=== PATIENT | male | born 1990 | race American Indian/Alaskan Native ===

== ENCOUNTER 2017-01-02 10:56 | Emergency (ER) | payer MEDICAID ==
[2017-01-02 11:01] VITALS: BP 123/80; PULSE 80; RESP 18; TEMP 98.2; O2SAT 98
[2017-01-02 11:02] VITALS: BMI 46.3
--- NOTE | 2017-01-02 12:04 | ED PDOC ---
HPI: General Adult Time Seen by Provider: 01/02/17 11:18 Chief Complaint (Nursing): Medical Clearance Chief Complaint (Provider): detox History Per: Patient Additional Complaint(s): pt requesting detox from coccaine and heroin. states last use coccaine this morning, heroin yesterday afternoon, snorts both. no skin popping. denies c/o at this time. Past Medical History Reviewed: Historical Data, Nursing Documentation, Vital Signs Vital Signs: Last Vital Signs Temp 98.2 F 01/02/17 11:01 Pulse 80 01/02/17 11:01 Resp 18 01/02/17 11:01 BP 123/80 01/02/17 11:01 Pulse Ox 98 01/02/17 11:01 - Medical History PMH: Depression, HTN - Family History Family History: States: No Known Family Hx - Social History Current smoker - smoking cessation education provided: No Alcohol: None Drugs: Cocaine, Opiates - Allergies Allergies/Adverse Reactions: Allergies Allergy/AdvReac Type Severity Reaction Status Date / Time No Known Allergies Allergy Verified 01/02/17 11:32 Review of Systems ROS Statement: Except As Marked, All Systems Reviewed And Found Negative Physical Exam - Reviewed Nursing Documentation Reviewed: Yes Vital Signs Reviewed: Yes - Physical Exam Appears: Positive for: Well, Non-toxic, No Acute Distress Head Exam: Positive for: ATRAUMATIC, NORMAL INSPECTION, NORMOCEPHALIC Skin: Positive for: Normal Color, Warm, DRY Eye Exam: Positive for: EOMI, Normal appearance, PERRL Neck: Positive for: Normal, Painless ROM Cardiovascular/Chest: Positive for: Regular Rate, Rhythm Respiratory: Positive for: CNT, Normal Breath Sounds Gastrointestinal/Abdominal: Positive for: Normal Exam (obese), Bowel Sounds, Soft. Negative for: Tenderness Extremity: Positive for: Normal ROM. Negative for: Tenderness Neurologic/Psych: Positive for: Alert, Oriented, Gait (steady). Negative for: Motor/Sensory Deficits - ECG O2 Sat by Pulse Oximetry: 98 Medical Decision Making Medical Decision Making: pleasant 26 y/o male requesting detox admission. no c/o at this time or clinical intoxication. [facility] has no openings today. referrals given for local programs. Disposition - Clinical Impression Clinical Impression: Polysubstance (excluding opioids) dependence - Patient ED Disposition Is Patient to be Admitted: No - Disposition Referrals: [facility] [Outside] Disposition: Routine/Home Disposition Time: 12:04 Condition: GOOD Instructions: Polysubstance Abuse (ED)
== END 2017-01-02 12:22 | disposition home or self-care (01) ==
LOC: H.ER 10:56
DX: F19.10 Other psychoactive substance abuse, uncomplicated (principal)